=== PATIENT | female | born 1990 | race Caucasian/White ===

== ENCOUNTER 2022-12-07 18:32 | Emergency (ER) | payer BC, OTHER ==
[~2022-12-07] VITALS: Ht 165.1 cm; Wt 63.5 kg
--- NOTE | 2022-12-07 18:36 | NUR ---
Placed in room 03 . Placed on nuclear monitoring technician, blood pressure machine and pulse oximeter. To gown for exam. Side rails up. Report given to CARLOS FERRERA
[2022-12-07 18:37] VITALS: BP_SYST 160; PULSE 87; RESP 18; TEMP 98.2; O2SAT 97
[2022-12-07] MEDS ORDERED: PANTOPRAZOLE SODIUM 40 MG/VIAL (PROTONIX) IVP ONE (19:00)
[2022-12-07] MEDS ORDERED: NACL 0.9% 1,000 ML IV ONE (19:00)
[2022-12-07] MEDS ORDERED: ONDANSETRON HCL 4 MG/2 ML VIAL IVP ONE (19:00)
--- NOTE | 2022-12-07 19:00 | NUR ---
Pt bib parent from home chief [id number] uncontrollable vomiting for past day. aaox3, nauseated and generalized pain 7/10 abdominal. Pt is afebrile, cap return less than 3seconds. stated chest pressure. pt without past medical history.
[2022-12-07 19:29] LABS: BASOPHILS % (AUTO) 0.1 % (0.0-2.0); HEMATOCRIT 41.3 % (36-48); HEMOGLOBIN 13.7 g/dL (12.0-16.0); LYMPHOCYTES # (AUTO) 1.2 K/uL (1.0-5.5); LYMPHOCYTES % (AUTO) 6.5 % (20.5-51.5); MEAN CORPUSCULAR HEMOGLOBIN 31 pg (27-31); MEAN CORPUSCULAR HGB CONC 33 % (32-36); MEAN CORPUSCULAR VOLUME 93 fL (79.0-98.0); MONOCYTES # (AUTO) 1.5 K/uL (0.0-1.0); MONOCYTES % (AUTO) 8.1 % (1.7-9.3); NEUTROPHILS # (AUTO) 16.1 K/uL (1.8-7.7); NEUTROPHILS % (AUTO) 85.3 % (40.0-70.0); PLATELET COUNT (AUTO) 275 K/uL (130-430); RED BLOOD CELL COUNT(AUTO) 4.44 MIL/uL (4.2-6.2); RED CELL DISTRIBUTION WIDTH 13.8 % (9.0-15.0); WHITE BLOOD COUNT (AUTO) 18.9 K/uL (4.8-10.8)
--- NOTE | 2022-12-07 19:32 | NUR ---
# 22 gauge angiocath placed to left hand. Use of asceptic technique. Opsite placed over site. Blood return noted. Blood for lab drawn from site. Flushed with 10 cc of normal saline. No evidence of infiltration noted. Patient tolerated well.
--- NOTE | 2022-12-07 19:54 | NUR ---
PROVIDED PT CUP FOR URINE. PT AMBULATED TO RESTROOM TO PROVIDE URINE.
[2022-12-07 20:03] LABS: BLOOD, URINE 2+ (NEGATIVE); CLARITY/URINE CLEAR (CLEAR); COLOR,URINE YELLOW (YELLOW); GLUCOSE,URINE NEGATIVE (NEGATIVE); KETONES,URINE 3+ (NEGATIVE); LEUKOCYTE ESTERASE ,URINE NEGATIVE (NEGATIVE); NITRITE, URINE NEGATIVE (NEGATIVE); PROTEIN URINE 1+ (NEGATIVE); UROBILINOGEN,URINE 0.2 (0.2-1.0)
--- NOTE | 2022-12-07 20:09 | NUR ---
PT REPORTS ABD PAIN STILL AFTER PROTONIX 12/31, DESCRIBES PAIN TIGHT. NEW ORDERS FOR PAIN MEDICATION.
[2022-12-07] MEDS ORDERED: fentaNYL CITRATE/PF 100 MCG/2 ML AMP IVP ONE (20:15)
[2022-12-07 20:17] LABS: ANION GAP 14 (5-15); CALCIUM 8.3 mg/dL (8.4-11.0); CHLORIDE 101 mmol/L (98-107); CREATININE 0.99 mg/dL (0.55-1.30); GFR AFRICAN AMERICAN 84 mL/min (>90); GLUCOSE 69 mg/dL (74-106); UREA NITROGEN, BLOOD 9 mg/dL (8-21)
[2022-12-07 20:21] VITALS: BP_SYST 126; PULSE 88; RESP 21; TEMP 97.5; O2SAT 98
[2022-12-07 20:21] LABS: ALANINE AMINOTRANSFERASE 21 U/L (12-78); ALBUMIN 3.7 g/dL (3.4-4.8); ASPARTATE AMINOTRANSFERASE 18 U/L (10-37); LIPASE 117 U/L (73-393); TOTAL BILIRUBIN 0.8 mg/dL (0.0-1.0)
[2022-12-07 20:22] LABS: ALCOHOL, BLOOD < 3 mg/dL (<10)
[2022-12-07 20:24] LABS: BILIRUBIN,URINE 1+ (NEGATIVE)
[2022-12-07 20:25] LABS: BACTERIA,URINE RARE /HPF (None Seen); MUCUS,URINE None Seen /LPF (None Seen); WBC,URINE 0-3 /HPF (0-3)
[2022-12-07] MEDS ORDERED: ONDA-8 TL (22:03)
[2022-12-07] MEDS ORDERED: OMEP40CA20 PO (22:03)
--- NOTE | 2022-12-07 22:10 | NUR ---
Patient given written and verbal discharge instructions and verbalizes understanding. ER MD discussed with patient the results and treatment provided. Patient in stable condition. ID arm band removed. IV catheter removed intact and dressing applied, no active bleeding. Rx of ZOFRAN & OMEPRAZOLE given. Patient educated on pain management and to follow up with PMD. Pain Scale 0/10. Opportunity for questions provided and answered. Medication side effect fact sheet provided.
== END 2022-12-07 22:10 | disposition home or self-care (01) ==
LOC: SED 18:32
DX: K52.9 Noninfective gastroenteritis and colitis, unspecified (principal); R11.10 Vomiting, unspecified; R10.13 Epigastric pain; R10.33 Periumbilical pain; Z79.899 Other long term (current) drug therapy
CPT/HCPCS: 99285; 74176; 96374; 96375; 80053; 84703; 83690; 85025; 84484; 36415; 93005; 76376; 81000; G0482; J2405; C9113; J3010; J7030

== ENCOUNTER 2022-12-08 13:26 | Inpatient (IN) | payer BC ==
[~2022-12-08] VITALS: Ht 165.1 cm; Wt 63.5 kg
[~2022-12-08 13:26] MED LIST: OMEP40CA20 PO; ONDA-8 TL
[2022-12-08 13:31] VITALS: PULSE 83; RESP 16; TEMP 97.5; O2SAT 98
[2022-12-08] MEDS ORDERED: NACL 0.9% 1,000 ML IV ONE ×2 (14:15→15:30)
[2022-12-08] MEDS ORDERED: ONDANSETRON HCL 4 MG/2 ML VIAL IVP ONE (14:15)
[2022-12-08] MEDS ORDERED: MORPHINE 4 MG INJ. 4 MG/ML VIAL IVP ONE (14:15)
[2022-12-08 14:22] LABS: BASOPHILS # (AUTO) 0.1 K/uL (0.0-0.2); BASOPHILS % (AUTO) 0.6 % (0.0-2.0); EOSINOPHILS % (AUTO) 0.2 % (0.0-4.0); HEMATOCRIT 44.6 % (36-48); LYMPHOCYTES # (AUTO) 0.9 K/uL (1.0-5.5); LYMPHOCYTES % (AUTO) 6.7 % (20.5-51.5); MEAN CORPUSCULAR HEMOGLOBIN 31 pg (27-31); MEAN CORPUSCULAR HGB CONC 34 % (32-36); MEAN CORPUSCULAR VOLUME 91 fL (79.0-98.0); MONOCYTES # (AUTO) 0.7 K/uL (0.0-1.0); MONOCYTES % (AUTO) 5.1 % (1.7-9.3); NEUTROPHILS # (AUTO) 11.4 K/uL (1.8-7.7); NEUTROPHILS % (AUTO) 87.4 % (40.0-70.0); PLATELET COUNT (AUTO) 288 K/uL (130-430); RED BLOOD CELL COUNT(AUTO) 4.88 MIL/uL (4.2-6.2); RED CELL DISTRIBUTION WIDTH 13.5 % (9.0-15.0)
[2022-12-08] MEDS ORDERED: MAG-AL HYDROX/SIMETH 30 ML UDC ONE (14:29)
[2022-12-08] MEDS ORDERED: DICYCLOMINE HCL 10 MG/5 ML SOLUTION ONE (14:29)
[2022-12-08] MEDS ORDERED: MAG HYDROX/AL HYDROX/SIMETH 30 ML, DICYCLOMINE HCL 20 MG, LIDOCAINE VISCOUS 2% 15ML (PO... PO ONE ×3 (14:30)
[2022-12-08] MEDS ORDERED: FAMOTIDINE PF 20 MG/2 ML VIAL IVP ONE (14:30)
[2022-12-08] MEDS ORDERED: ONDANSETRON HCL 4 MG/2 ML VIAL ONE (14:31)
[2022-12-08 14:37] LABS: ALBUMIN 4.5 g/dL (3.4-4.8); CALCIUM 9.4 mg/dL (8.4-11.0); CREATININE 1.03 mg/dL (0.55-1.30); TOTAL BILIRUBIN 0.8 mg/dL (0.0-1.0)
[2022-12-08] MEDS ORDERED: DIPHENHYDRAMINE INJ 50 MG/ML VIAL IVP ONE (14:45)
[2022-12-08] MEDS ORDERED: METOCLOPRAMIDE HCL 10 MG/2 ML VIAL IVP ONE (14:45)
[2022-12-08] MEDS ORDERED: KCL 20 mEq in 100 mL (PREMIX) 100 ML IV ONE (15:15)
[2022-12-08] MEDS ORDERED: cefTRIAXone 1 GM IVPB PREMIX 50 ML IV ONE (15:30)
[2022-12-08] MEDS ORDERED: METOCLOPRAMIDE HCL 10 MG/2 ML VIAL ONE (16:01)
[2022-12-08] MEDS ORDERED: KCL 10 mEq in 50 mL (PREMIX) 50 ML IV ONE (16:01)
[2022-12-08 16:49] LABS: BARBITURATE, URINE NEGATIVE (NEG <=200); BENZODIAZEPINE, URINE NEGATIVE (NEG <=150); CANNABINOID, URINE POSITIVE (NEG <=50); COCAINE, URINE NEGATIVE (NEG <=150); METHAMPHETAMINES SCREEN,URINE NEGATIVE (NEG <=500); OPIATE, URINE NEGATIVE (NEG <=100); PHENCYCLIDINE SCREEN,URINE NEGATIVE (NEG <=25); UR TRICYCLIC ANTIDEPRESSANTS NEGATIVE (NEG <=300); URINE AMPHETAMINE NEGATIVE (NEG <=500); URINE METHADONE NEGATIVE (NEG <=200); URINE OXYCODONE SCREEN NEGATIVE (NEG <=100); URINE PROPOXYPHENE SCREEN NEGATIVE (NEG <=300)
[2022-12-08 21:00] VITALS: BP_SYST 143; PULSE 90; RESP 20; TEMP 99.1; O2SAT 93
[2022-12-08 21:15] VITALS: BP_SYST 125; PULSE 68; RESP 20; TEMP 99.1; O2SAT 96
[2022-12-08] MEDS ORDERED: ONDANSETRON HCL 4 MG/2 ML VIAL IM PRN (23:30)
[2022-12-08] MEDS ORDERED: ACETAMINOPHEN 325 MG TABLET PO PRN (23:30)
[2022-12-09] MEDS: METOCLOPRAMIDE HCL 10 MG/2 ML VIAL IVP SCH ×4 (00:21→21:36)
[2022-12-09] MEDS: D5/0.45 NS 1,000 ML IV SCH ×3 (00:21→21:35)
[2022-12-09 07:00] VITALS: O2SAT 99
[2022-12-09 08:00] VITALS: BP_SYST 130; PULSE 68; RESP 18; TEMP 97.7; O2SAT 97
[2022-12-09] MEDS ORDERED: LORazepam 2 MG/ML VIAL IVP PRN (10:15)
[2022-12-09] MEDS ORDERED: KETOROLAC TROMETHAMINE 30 MG VIAL IVP PRN (14:00)
[2022-12-09] MEDS ORDERED: cefTRIAXone 1 GM IVPB PREMIX 50 ML IV SCH (16:00)
[2022-12-09 16:44] VITALS: BP_SYST 127; PULSE 69; RESP 20; TEMP 98; O2SAT 100
[2022-12-09 19:00] VITALS: O2SAT 93
[2022-12-09 20:00] VITALS: BP_SYST 147; BP_SYST 165; PULSE 53; PULSE 71; RESP 18; RESP 20; TEMP 97.9; TEMP 98.5; O2SAT 93; O2SAT 97
[2022-12-09] MEDS ORDERED: traZODone HCL 50 MG TABLET (DESYREL) PO PRN (21:30)
[2022-12-10 01:05] VITALS: BP_SYST 120; PULSE 69; RESP 18; TEMP 97.7; O2SAT 98
[2022-12-10] MEDS: METOCLOPRAMIDE HCL 10 MG/2 ML VIAL IVP SCH ×3 (01:10→13:53)
[2022-12-10] MEDS: D5/0.45 NS 1,000 ML IV SCH (06:00)
[2022-12-10 06:13] LABS: BASOPHILS % (AUTO) 0.6 % (0.0-2.0); EOSINOPHILS # (AUTO) 0.1 K/uL (0.0-0.4); HEMATOCRIT 37.2 % (36-48); HEMOGLOBIN 12.8 g/dL (12.0-16.0); LYMPHOCYTES # (AUTO) 1.7 K/uL (1.0-5.5); LYMPHOCYTES % (AUTO) 28.1 % (20.5-51.5); MEAN CORPUSCULAR HEMOGLOBIN 31 pg (27-31); MEAN CORPUSCULAR HGB CONC 34 % (32-36); MEAN CORPUSCULAR VOLUME 92 fL (79.0-98.0); MONOCYTES # (AUTO) 0.6 K/uL (0.0-1.0); MONOCYTES % (AUTO) 9.2 % (1.7-9.3); NEUTROPHILS # (AUTO) 3.6 K/uL (1.8-7.7); NEUTROPHILS % (AUTO) 60.1 % (40.0-70.0); PLATELET COUNT (AUTO) 221 K/uL (130-430); RED BLOOD CELL COUNT(AUTO) 4.06 MIL/uL (4.2-6.2); RED CELL DISTRIBUTION WIDTH 13.2 % (9.0-15.0); WHITE BLOOD COUNT (AUTO) 6.1 K/uL (4.8-10.8)
[2022-12-10 06:29] LABS: CALCIUM 8.1 mg/dL (8.4-11.0); CREATININE 0.85 mg/dL (0.55-1.30)
[2022-12-10 06:34] LABS: INR 1.1 (0.8-1.2); PROTHROMBIN TIME 11.2 SECS (9.5-12.5)
[2022-12-10] MEDS ORDERED: KCL 20 mEq in 100 mL (PREMIX) 200 ML IV ONE (07:45)
[2022-12-10] MEDS ORDERED: KCL 40mEq in D5/0.45NS 1000 mL 1,000 ML IV SCH (07:45)
[2022-12-10 10:18] VITALS: BP_SYST 118; PULSE 71; RESP 18; TEMP 97.7; O2SAT 98
[2022-12-10] MEDS ORDERED: POTA-197 PO (10:39)
[2022-12-10] MEDS ORDERED: ONDA-8 TL (10:39)
[2022-12-10] MEDS ORDERED: PANTOPRAZOLE SODIUM 40 MG TAB PO ONE (12:30)
[2022-12-10 12:55] VITALS: BP_SYST 136; PULSE 76; RESP 18; TEMP 97.4; O2SAT 97
[2022-12-10 13:25] VITALS: BP_SYST 136; PULSE 76; RESP 18; TEMP 97.4; O2SAT 99
[2022-12-10 13:30] VITALS: BP_SYST 136; PULSE 76; RESP 18; TEMP 97.4; O2SAT 98
[2022-12-11] MEDS ORDERED: PANTOPRAZOLE SODIUM 40 MG TAB PO SCH (09:00)
== END 2022-12-10 15:30 | disposition home or self-care (01) | DRG 641 ==
LOC: SED 13:26 → SMU 16:25
PROVIDERS: ADMIT Preventive Medicine Preventive Medicine/Occupational Environmental Medicine; ATTEND Preventive Medicine Preventive Medicine/Occupational Environmental Medicine
DX: E87.6 Hypokalemia (principal); E87.1 Hypo-osmolality and hyponatremia; D72.829 Elevated white blood cell count, unspecified; Z20.822 Contact with and (suspected) exposure to COVID-19; F12.10 Cannabis abuse, uncomplicated; Z87.11 Personal history of peptic ulcer disease
CPT/HCPCS: 36415; 71045; 74021; 76700-TC; 80048; 80053; 80307; 83605; 83690; 84703; 85025; 85610-TC; 87040; 96365; 96368; 96375; 99285; J0696; J1200; J1885; J2270; J2405; J2765; J3480; J3490

== ENCOUNTER 2024-03-08 20:18 | Emergency (ER) | payer BC, MEDICAID ==
[~2024-03-08] VITALS: Ht 167.6 cm; Wt 63.5 kg
[~2024-03-08 20:18] MED LIST changes: +POTA-197 PO
[2024-03-08 20:29] VITALS: BP_SYST 160; PULSE 104; RESP 20; TEMP 96.7; O2SAT 98
[2024-03-08] MEDS: DIPHENHYDRAMINE INJ 50 MG/ML VIAL IVP ONE (20:55)
[2024-03-08] MEDS: HALOPERIDOL LACTATE 5 MG/ML VIAL IVP ONE (20:56)
[2024-03-08] MEDS: NACL 0.9% 1,000 ML IV ONE (20:57)
[2024-03-08 21:09] LABS: BASOPHILS % (AUTO) 0.4 % (0.0-2.0); EOSINOPHILS % (AUTO) 0.5 % (0.0-4.0); HEMATOCRIT 43.4 % (36-48); HEMOGLOBIN 15.1 g/dL (12.0-16.0); LYMPHOCYTES % (AUTO) 10.1 % (20.5-51.5); MEAN CORPUSCULAR HEMOGLOBIN 33 pg (27-31); MEAN CORPUSCULAR HGB CONC 35 % (32-36); MEAN CORPUSCULAR VOLUME 94 fL (79.0-98.0); MONOCYTES # (AUTO) 0.5 K/uL (0.0-1.0); MONOCYTES % (AUTO) 5.4 % (1.7-9.3); NEUTROPHILS # (AUTO) 8.2 K/uL (1.8-7.7); NEUTROPHILS % (AUTO) 83.6 % (40.0-70.0); PLATELET COUNT (AUTO) 285 K/uL (130-430); RED BLOOD CELL COUNT(AUTO) 4.61 MIL/uL (4.2-6.2); RED CELL DISTRIBUTION WIDTH 13.5 % (9.0-15.0); WHITE BLOOD COUNT (AUTO) 9.8 K/uL (4.8-10.8)
[2024-03-08 21:19] LABS: ALBUMIN 4.7 g/dL (3.4-4.8); BILIRUBIN,DIRECT 0.2 mg/dL (0.0-0.3); CALCIUM 10.2 mg/dL (8.4-11.0); CREATININE 1.17 mg/dL (0.55-1.30); POTASSIUM 3.5 mmol/L (3.5-5.1); TOTAL BILIRUBIN 0.7 mg/dL (0.0-1.0); TOTAL PROTEIN, SERUM 8.3 g/dL (6.4-8.3)
[2024-03-08] MEDS ORDERED: HAL5 PO (22:16)
[2024-03-08] MEDS ORDERED: BENZ1TAB82 PO (22:16)
[2024-03-08 22:46] VITALS: BP_SYST 160; PULSE 86; RESP 15; O2SAT 99
== END 2024-03-08 22:47 | disposition home or self-care (01) ==
LOC: SED 20:18
DX: R10.13 Epigastric pain (principal); R11.10 Vomiting, unspecified; F12.90 Cannabis use, unspecified, uncomplicated; R68.83 Chills (without fever); Z79.899 Other long term (current) drug therapy
CPT/HCPCS: 99284; 96374; 96361; 96375; 80076; 80048; 83690; 85025; 36415; J1200; J1630; J7030

== ENCOUNTER 2024-03-10 19:51 | Inpatient (IN) | payer MEDICAID ==
[~2024-03-10] VITALS: Ht 167.6 cm; Wt 67.1 kg
[~2024-03-10 19:51] MED LIST changes: +BENZ1TAB82 PO; +HAL5 PO
[2024-03-10 20:06] VITALS: BP_SYST 165; PULSE 101; RESP 20; TEMP 98; O2SAT 98
[2024-03-10] MEDS: NACL 0.9% 1,000 ML IV ONE ×2 (21:27→22:26)
[2024-03-10] MEDS: ONDANSETRON HCL 4 MG/2 ML VIAL IVP ONE (21:28)
[2024-03-10 21:30] LABS: BASOPHILS # (AUTO) 0.1 K/uL (0.0-0.2); BASOPHILS % (AUTO) 0.6 % (0.0-2.0); HEMATOCRIT 44.4 % (36-48); HEMOGLOBIN 15.6 g/dL (12.0-16.0); LYMPHOCYTES # (AUTO) 0.5 K/uL (1.0-5.5); LYMPHOCYTES % (AUTO) 6.6 % (20.5-51.5); MEAN CORPUSCULAR HEMOGLOBIN 33 pg (27-31); MEAN CORPUSCULAR HGB CONC 35 % (32-36); MEAN CORPUSCULAR VOLUME 92 fL (79.0-98.0); MONOCYTES # (AUTO) 0.2 K/uL (0.0-1.0); MONOCYTES % (AUTO) 2.4 % (1.7-9.3); NEUTROPHILS # (AUTO) 7.4 K/uL (1.8-7.7); NEUTROPHILS % (AUTO) 90.4 % (40.0-70.0); PLATELET COUNT (AUTO) 271 K/uL (130-430); RED BLOOD CELL COUNT(AUTO) 4.81 MIL/uL (4.2-6.2); RED CELL DISTRIBUTION WIDTH 13.7 % (9.0-15.0); WHITE BLOOD COUNT (AUTO) 8.2 K/uL (4.8-10.8)
[2024-03-10] MEDS: MORPHINE 4 MG INJ. 4 MG/ML VIAL IVP ONE (21:31)
[2024-03-10 21:42] LABS: ALBUMIN 4.7 g/dL (3.4-4.8); BILIRUBIN,DIRECT 0.1 mg/dL (0.0-0.3); CALCIUM 10.1 mg/dL (8.4-11.0); CREATININE 1.05 mg/dL (0.55-1.30); POTASSIUM 3.6 mmol/L (3.5-5.1); TOTAL BILIRUBIN 0.4 mg/dL (0.0-1.0); TOTAL PROTEIN, SERUM 8.6 g/dL (6.4-8.3)
[2024-03-10 21:54] LABS: BILIRUBIN,URINE NEGATIVE (NEGATIVE); BLOOD, URINE 2+ (NEGATIVE); COLOR,URINE YELLOW (YELLOW); GLUCOSE,URINE NEGATIVE (NEGATIVE); KETONES,URINE 3+ (NEGATIVE); LEUKOCYTE ESTERASE ,URINE NEGATIVE (NEGATIVE); NITRITE, URINE NEGATIVE (NEGATIVE); PH,URINE 7.5 (5.0-8.0); PROTEIN URINE 1+ (NEGATIVE)
[2024-03-10 21:55] LABS: CLARITY/URINE SLIGHTLY HAZY (CLEAR)
[2024-03-10 22:01] LABS: BACTERIA,URINE FEW /HPF (None Seen); MUCUS,URINE 1+ /LPF (None Seen); WBC,URINE 0-3 /HPF (0-3)
[2024-03-10] MEDS: LABETALOL HCL 20 MG/4 ML CARTRIDGE IVP ONE (22:47)
[2024-03-11] MEDS: PANTOPRAZOLE SODIUM 40 MG/VIAL (PROTONIX) IVP ONE (01:18)
[2024-03-11] MEDS: MORPHINE 4 MG INJ. 4 MG/ML VIAL IVP ONE (01:19)
[2024-03-11] MEDS: NACL 0.9% 1,000 ML IV SCH (02:33)
[2024-03-11 03:30] VITALS: BP_SYST 108; PULSE 79; RESP 18; O2SAT 95
[2024-03-11 03:36] VITALS: BP_SYST 108; PULSE 76; RESP 18; TEMP 97.9; O2SAT 95
[2024-03-11] MEDS: MORPHINE 2 MG/ML INJ. SYRINGE IVP PRN (05:07)
[2024-03-11 06:34] LABS: BASOPHILS % (AUTO) 0.3 % (0.0-2.0); EOSINOPHILS % (AUTO) 0.1 % (0.0-4.0); HEMATOCRIT 39.1 % (36-48); LYMPHOCYTES # (AUTO) 0.9 K/uL (1.0-5.5); LYMPHOCYTES % (AUTO) 8.1 % (20.5-51.5); MEAN CORPUSCULAR HEMOGLOBIN 32 pg (27-31); MEAN CORPUSCULAR HGB CONC 33 % (32-36); MEAN CORPUSCULAR VOLUME 95 fL (79.0-98.0); MONOCYTES # (AUTO) 0.9 K/uL (0.0-1.0); MONOCYTES % (AUTO) 7.8 % (1.7-9.3); NEUTROPHILS # (AUTO) 9.5 K/uL (1.8-7.7); NEUTROPHILS % (AUTO) 83.7 % (40.0-70.0); PLATELET COUNT (AUTO) 247 K/uL (130-430); RED BLOOD CELL COUNT(AUTO) 4.12 MIL/uL (4.2-6.2); RED CELL DISTRIBUTION WIDTH 13.5 % (9.0-15.0); WHITE BLOOD COUNT (AUTO) 11.4 K/uL (4.8-10.8)
[2024-03-11 06:45] LABS: ALBUMIN 3.6 g/dL (3.4-4.8); CALCIUM 8.3 mg/dL (8.4-11.0); CREATININE 0.9 mg/dL (0.55-1.30); POTASSIUM 3.5 mmol/L (3.5-5.1); TOTAL BILIRUBIN 0.4 mg/dL (0.0-1.0); TOTAL PROTEIN, SERUM 6.4 g/dL (6.4-8.3)
[2024-03-11 08:25] VITALS: BP_SYST 112; PULSE 76; RESP 19; TEMP 97.6; O2SAT 100
[2024-03-11] MEDS: PANTOPRAZOLE SODIUM 40 MG/VIAL (PROTONIX) IVP SCH (10:20)
[2024-03-11] MEDS: HYDROcodone/ACETAMIN 5-325 MG TAB (NORCO/ VICODIN) PO PRN (10:43)
[2024-03-11 13:21] LABS: BARBITURATE, URINE NEGATIVE (NEG <=200); METHAMPHETAMINES SCREEN,URINE NEGATIVE (NEG <=500); URINE AMPHETAMINE NEGATIVE (NEG <=500); URINE METHADONE NEGATIVE (NEG <=200)
[2024-03-11 13:22] LABS: BENZODIAZEPINE, URINE POSITIVE (NEG <=150); CANNABINOID, URINE POSITIVE (NEG <=50); COCAINE, URINE NEGATIVE (NEG <=150); OPIATE, URINE POSITIVE (NEG <=100); PHENCYCLIDINE SCREEN,URINE NEGATIVE (NEG <=25); URINE OXYCODONE SCREEN NEGATIVE (NEG <=100)
[2024-03-11 13:24] LABS: UR TRICYCLIC ANTIDEPRESSANTS NEGATIVE (NEG <=300)
[2024-03-11 14:04] VITALS: BP_SYST 114; PULSE 70; RESP 18; TEMP 96.1; O2SAT 100
[2024-03-11 20:00] VITALS: BP_SYST 126; PULSE 79; RESP 18; TEMP 97.5; O2SAT 99
[2024-03-11] MEDS: ZOSTRIX 0.025% CR TP SCH (20:56)
[2024-03-11] MEDS: LORazepam 1 MG TABLET PO ONE (22:30)
[2024-03-12 00:31] VITALS: BP_SYST 90; PULSE 74; RESP 18; TEMP 97.7; O2SAT 96
[2024-03-12] MEDS: MEPERIDINE 100 MG INJ. 100 MG/ML VIAL ONE (06:47)
[2024-03-12] MEDS: MIDAZOLAM HCL 5 MG/5 ML VIAL ONE (06:48)
[2024-03-12 06:52] LABS: BASOPHILS % (AUTO) 0.9 % (0.0-2.0); EOSINOPHILS # (AUTO) 0.1 K/uL (0.0-0.4); EOSINOPHILS % (AUTO) 2.2 % (0.0-4.0); HEMATOCRIT 36.1 % (36-48); HEMOGLOBIN 12.3 g/dL (12.0-16.0); LYMPHOCYTES # (AUTO) 1.7 K/uL (1.0-5.5); LYMPHOCYTES % (AUTO) 36.6 % (20.5-51.5); MEAN CORPUSCULAR HEMOGLOBIN 32 pg (27-31); MEAN CORPUSCULAR HGB CONC 34 % (32-36); MEAN CORPUSCULAR VOLUME 95 fL (79.0-98.0); MONOCYTES # (AUTO) 0.5 K/uL (0.0-1.0); MONOCYTES % (AUTO) 10.5 % (1.7-9.3); NEUTROPHILS # (AUTO) 2.4 K/uL (1.8-7.7); NEUTROPHILS % (AUTO) 49.8 % (40.0-70.0); PLATELET COUNT (AUTO) 201 K/uL (130-430); RED BLOOD CELL COUNT(AUTO) 3.81 MIL/uL (4.2-6.2); RED CELL DISTRIBUTION WIDTH 13.2 % (9.0-15.0); WHITE BLOOD COUNT (AUTO) 4.8 K/uL (4.8-10.8)
[2024-03-12 07:02] LABS: ALBUMIN 3.1 g/dL (3.4-4.8); CALCIUM 8.4 mg/dL (8.4-11.0); CREATININE 0.84 mg/dL (0.55-1.30); TOTAL BILIRUBIN 0.3 mg/dL (0.0-1.0); TOTAL PROTEIN, SERUM 5.6 g/dL (6.4-8.3)
[2024-03-12 08:00] VITALS: BP_SYST 105; PULSE 63; RESP 16; TEMP 97.7; O2SAT 97
[2024-03-12] MEDS ORDERED: POTASSIUM CHLORIDE 10 MEQ TABLET.ER PO SCH (08:00)
[2024-03-12 08:05] VITALS: O2SAT 97
[2024-03-12] MEDS: DIPHENHYDRAMINE INJ 50 MG/ML VIAL ONE (08:22)
[2024-03-12] MEDS: POTASSIUM CHLORIDE 20 MEQ TABLET.ER PO SCH (09:41)
[2024-03-12] MEDS ORDERED: PANT20TA2 PO (10:29)
[2024-03-12 12:00] VITALS: BP_SYST 110; PULSE 69; RESP 16; TEMP 97.7
[2024-03-12] MEDS ORDERED: POLY17PO4 PO (12:43)
[2024-03-12 12:59] VITALS: BP_SYST 109; PULSE 82; RESP 16; TEMP 97.7; O2SAT 96
[2024-03-12] MEDS: SODIUM PHOSPHATE,MONO-DIBASIC 133 ML ENEMA RC ONE (13:08)
[2024-03-14 02:06] LABS: HEPATITIS A AB, IgM Negative (Negative); HEPATITIS B CORE AB, IgM Negative (Negative); HEPATITIS B SURFACE AG Negative (Negative); HEPATITIS C VIRUS AB Non Reactive (Non Reactive)
== END 2024-03-12 13:20 | disposition home or self-care (01) | DRG 243 ==
LOC: SED 19:51 → SMU 03-11 01:02
PROVIDERS: ADMIT Student in an Organized Health Care Education/Training Program; ATTEND Student in an Organized Health Care Education/Training Program
PROC: 0DB68ZX Excision of Stomach, Via Natural or Artificial Opening Endoscopic, Diagnostic (ICD-10-PCS; principal; 2024-03-12 07:30)
DX: K20.80 Other esophagitis without bleeding (principal); R65.10 Systemic inflammatory response syndrome (SIRS) of non-infectious origin without acute organ dysfunction; K76.0 Fatty (change of) liver, not elsewhere classified; K29.00 Acute gastritis without bleeding; E87.6 Hypokalemia; F12.90 Cannabis use, unspecified, uncomplicated
CPT/HCPCS: 36415; 43239; 76700; 80048; 80053; 80074; 80076; 80307; 81000; 81001; 81015; 83690; 85025; 87040; 88305; 88312; 88313; 93005; 99285; J1200; J2175; J2250; J2270; J2405; J2470; J7030